=== PATIENT | male | born 1990 | race Caucasian/White ===

== ENCOUNTER 2022-09-09 10:04 | Emergency (ER) | payer OTHER, SELFPAY ==
--- NOTE | ~2022-09-09 | CT_ITS ---
EXAMINATION: CT ABDOMEN AND PELVIS WITHOUT CONTRAST CLINICAL INFORMATION: Left-sided flank pain. COMPARISON: None TECHNIQUE: Multidetector volumetric imaging was performed from the superior aspect of the liver through the pubic symphysis. Sagittal and coronal reformatted images were obtained on the technologist's workstation. This CT examination was performed using dose optimization techniques as appropriate, variously including the following: *Automated exposure control *Adjustment of mA and/or kV according to patient size (this includes techniques or standardized protocols for targeted exams where dose is matched to indication/reason for exam; i.e. extremities or head) *Use of iterative reconstruction technique DLP: 925 mGy-cm FINDINGS: LUNG BASES: The visualized lung bases are unremarkable. LIVER, GALLBLADDER, AND BILIARY TREE: The liver is normal in size, shape, and attenuation. No focal hepatic lesion or biliary ductal dilatation is present. Multiple small gallstones within the gallbladder. Gallbladder is contracted. No edema around the gallbladder. No dilatation of the bile ducts. PANCREAS: Unremarkable. SPLEEN: Unremarkable. ADRENAL GLANDS: Unremarkable. KIDNEYS AND URETERS: The kidneys are normal in size, shape, and attenuation. No hydronephrosis, hydroureter, or calculi seen. No perinephric stranding. BLADDER: Unremarkable. GASTROINTESTINAL TRACT: The small and large bowel are unremarkable. The appendix is unremarkable. ABDOMINAL WALL: No significant hernia is appreciated. LYMPH NODES: Normal. VASCULAR: Unremarkable. PELVIC VISCERA: Unremarkable. OSSEOUS STRUCTURES: Unremarkable. CT/CT abdomen pelvis wo IV con IMPRESSION: 1. No acute abnormality CT scan abdomen pelvis. Normal kidneys, ureter and bladder. 2. Cholelithiasis. Fleischner guidelines were followed.
[2022-09-09 10:40] VITALS: BP 142/94; PULSE 87; RESP 18; TEMP 36.6; O2SAT 98; BMI 43.8
[2022-09-09 10:55] LABS: Basophils Absolute Auto 0.1 X10*3/uL (0.0-0.2); Eosinophils Absolute Auto 0.1 X10*3/uL (0.0-0.4); Eosinophils Percent Auto 1.5 % (0-4); Hematocrit 44.3 % (42.0-52.0); Hemoglobin 15.4 g/dl (14.0-18.0); Imm Gran Abs Auto 0.01 X10*3/uL (0.00-0.03); Imm Gran Pct Auto 0.2 % (0.0-0.4); Lymphocytes Absolute Auto 1.8 X10*3/uL (1.2-4.9); Lymphocytes Percent Auto 31.1 % (20-40); MANUAL DIFF FLAG NO; Mean Corpuscular HGB Conc 34.8 g/dl (31.0-36.0); Mean Corpuscular Volume 86.4 fL (80.0-98.0); Mean Platelet Volume 9.5 fL (9.4-12.4); Monocytes Absolute Auto 0.7 X10*3/uL (0.1-1.2); Monocytes Percent Auto 11.7 % (2-11); Neutrophils Absolute Auto 3.2 x10*3/uL (2.0-8.3); Neutrophils Percent Auto 54.5 % (45-73); Platelet Count 300 X10*3/uL (160-400); Red Blood Count 5.13 X10*6/uL (4.60-5.80); Red Cell Distribution Width 12.4 % (11.0-16.0); White Blood Count 5.9 X10*3/uL (4.8-10.8)
[2022-09-09 11:16] LABS: Albumin Level 4.7 g/dL (3.5-5.0); Alkaline Phosphatase 56 U/L (39-117); Anion Gap 16 (12-20); Aspartate Amino Transferase 26 U/L (5-37); Bilirubin Direct 0.2 mg/dL (0.0-0.5); Blood Urea Nitrogen 11 mg/dL (9-16); Calcium 9.7 mg/dL (8.4-10.2); Carbon Dioxide 25 mmol/L (22-29); Chloride 102 mmol/L (96-108); Creatinine Clr Calc Pharmacy 129.3; Estimated Glomerular Filt Rate > 60; Glucose Random 96 mg/dL (60-115); Potassium 4.6 mmol/L (3.3-5.1); Sodium 138 mmol/L (135-145); Total Protein 7.9 g/dL (6.5-8.0)
--- NOTE | 2022-09-09 11:44 | ED_ITS ---
HPI - Abdominal Pain General Chief Complaint: Abdominal Pain <Neha Ng NP - Last Filed: 09/09/22 11:47> Stated Complaint: L lower abd pain, hurts to breathe <Neha Ng NP - Last Filed: 09/09/22 11:47> Time Seen by Provider: 09/09/22 16:37 <Neha Ng NP - Last Filed: 09/09/22 11:47> Source: patient <Dorothy Contreras CNP - Last Filed: 09/09/22 17:58> Mode of arrival: ambulatory <Dorothy Contreras CNP - Last Filed: 09/09/22 17:58> Limitations: no limitations <Dorothy Contreras CNP - Last Filed: 09/09/22 17:58> History of Present Illness HPI narrative: Patient is a 32-year-old male who presents to the emergency department today for evaluation of left lateral abdominal pain. Reports onset of pain to the been this morning. Denies ever having pain like this in the past. It is described as sharp at times and achy at others. Sometimes it seems worse with particular movements or breathing, however at other times it hurts even while at rest. Denies fevers, chills, chest pain, shortness of breath, difficulty keysha thing, cough, nausea, vomiting, diarrhea, constipation, dysuria, urinary frequency/urgency/hesitancy, testicular pain or swelling, abnormal penile discharge. <Dorothy Contreras CNP - Last Filed: 09/09/22 17:58> Related Data Allergies/Adverse Reactions: Allergies Allergy/AdvReac Type Severity Reaction Status Date / Time Penicillins Allergy Rash Verified 09/09/22 10:39 <Neha Ng NP - Last Filed: 09/09/22 11:47> Review of Systems Review of Systems Constitutional : No Weight loss, No Fever, No Chills ENT/Mouth :? No sore throat, No Rhinorrhea Eyes: No Swelling, No Redness Cardiovascular : No Chest Pain, No SOB, No Edema Respiratory : No Cough, No Sputum, No Wheezing Gastrointestinal : No Nausea, no Vomiting, no Diarrhea, positive abdominal pain, No Hematochezia, No Melena Genitourinary : No Dysuria, No Urinary Frequency, No Hematuria, No Urgency? Musculoskeletal : No joint pain, No Myalgias, No Joint Swelling Skin : No Skin Lesions, No rash Neuro : No Weakness, No Numbness, No Dizziness, No Headache Psych : No Anxiety/Panic, No Depression Heme/Lymph: No Bruising, No Lymphadenopathy Endocrine : No Polyuria, No Polydipsia <Dorothy Contreras CNP - Last Filed: 09/09/22 17:58> Yes all other systems are reviewed and are negative <Dorothy Contreras CNP - Last Filed: 09/09/22 17:58> [facility] Past Medical History Attestation statement: The following information was validated with the patient. <Dorothy Contreras CNP - Last Filed: 09/09/22 17:58> Source: old records reviewed <Dorothy Contreras CNP - Last Filed: 09/09/22 17:58> Social History Social History: Social History Advance Directives: No Advance Directives Information Provided: No <Neha Ng NP - Last Filed: 09/09/22 11:47> Physical Exam ED Vital Signs: Vital Signs - 24 hr 09/09/22 10:40 09/09/22 14:00 Temperature 98 F Pulse Rate 87 68 Respiratory Rate 18 18 Blood Pressure 142/94 H 144/89 H Pulse Oximetry 98 100 Oxygen Delivery Method Room Air Room Air BMI result Body Mass Index 43.8 <Neha Ng NP - Last Filed: 09/09/22 11:47> Vital Signs - 24 hr 09/09/22 10:40 09/09/22 14:00 Temperature 98 F Pulse Rate 87 68 Respiratory Rate 18 18 Blood Pressure 142/94 H 144/89 H Pulse Oximetry 98 100 Oxygen Delivery Method Room Air Room Air BMI result Body Mass Index 43.8 <Dorothy Contreras CNP - Last Filed: 09/09/22 17:58> Appearance: Alert.?Oriented to person, place and time. No acute distress.?Normal affect. Eyes: Pupils equal, round and reactive to light.? ENT: Pharynx normal.?? Neck: Normal inspection.? Neck supple.?? CVS: Heart sounds normal. Normal heart rate and rhythm.? Pulses normal.?? Respiratory: No respiratory distress.? Lung sounds clear to auscultation bilaterally?? Abdomen: Soft and non-tender. Positive left CVA tenderness. Normoactive bowel sounds. Skin: Skin warm and dry.? Normal skin color.? Extremities: No lower extremity edema.? Neuro: Moves all extremities spontaneously. Sensation intact bilaterally. No focal neuro deficits. Ambulates with normal steady gait. <Dorothy Contreras CNP - Last Filed: 09/09/22 17:58> Course Course Course Narrative: This is a rapid medical exam. Deferred additional HPI, ROS, PE to primary provider. 32 yo male here with left sided abdominal pain since yesterday. Labs, UA ordered from triage. Patient telling me he wants to eat food. I did recommend he not eat anything although offered some juice/clear liquids. Patient tells me has to go back to work at 130pm and is wondering how much longer it would be. I did recommend he wait to be seen as he may require imaging. VSS <Neha Ng NP - Last Filed: 09/09/22 11:47> Reevaluation(s) Reevaluation #1: CT of the abdomen and pelvis reveals no acute abnormalities, no evidence of nephrolithiasis, cholelithiasis present, history physical examination not consistent with cholecystitis. Pain is currently 3/10, suspect to be muscular in nature. Advised outpatient follow-up with primary care provider. Reviewed worrisome signs and symptoms to return back to the emergency department for. NSAID/acetaminophen for pain. Patient verbalized understanding. Was discharged in stable condition. <Dorothy Contreras CNP - Last Filed: 09/09/22 17:58> Time: 17:53 <Dorothy Contreras CNP - Last Filed: 09/09/22 17:58> Medical Decision Making Medical Decision Making MDM Narrative: Patient is a 32-year-old male with no reported past medical history presenting to emergency department for evaluation of left lateral abdominal pain. Upon physical examination has no left lower upper quadrant tenderness up on palpation abdominal examination is benign. He does have CVA tenderness last posteriorly, localizes pain to the lateral aspect of the abdomen closer to his back. Reviewed labs obtained from triage/RN me. CBC and CMP unremarkable. Urinalysis without evidence of infection or microscopic hematuria. Patient to receive ketorolac IV for pain, will obtain CT of the abdomen and pelvis to evaluate for nephrolithiasis. Not consistent with appendicitis, diverticulitis, bowel obstruction, urinary tract infection, pyelonephritis. No shortness of breath or respiratory distress, does not appear consistent with pneumonia, PERC negative low suspicion for PE on, has no hypoxia or tachypnea, do not suspect pulmonary source for pain. <Dorothy Contreras CNP - Last Filed: 09/09/22 17:58> Lab Data MDM Lab Attestation statement: I reviewed the patient's lab results. <Dorothy Contreras CNP - Last Filed: 09/09/22 17:58> Result Diagrams: : 09/09/22 10:48 09/09/22 10:48 <Neha Ng [employer] - Last Filed: 09/09/22 11:47> Labs: Lab Results 09/09/22 09/09/22 09/09/22 Range/Units 10:48 10:48 11:40 WBC 5.9 (4.8-10.8) X10*3/uL RBC 5.13 (4.60-5.80) X10*6/uL Hgb 15.4 (14.0-18.0) g/dl Hct 44.3 (42.0-52.0) % MCV 86.4 (80.0-98.0) fL MCH 30.0 (27.0-33.0) pg MCHC 34.8 (31.0-36.0) g/dl RDW 12.4 (11.0-16.0) % Plt Count 300 (160-400) X10*3/uL MPV 9.5 (9.4-12.4) fL Immature Gran % (Auto) 0.2 (0.0-0.4) % Neut % (Auto) 54.5 (45-73) % Lymph % (Auto) 31.1 (20-40) % Glenn % (Auto) 11.7 H (2-11) % Eos % (Auto) 1.5 (0-4) % Baso % (Auto) 1.0 (0-2) % Lymph # (Auto) 1.8 (1.2-4.9) X10*3/uL Glenn # (Auto) 0.7 (0.1-1.2) X10*3/uL Eos # (Auto) 0.1 (0.0-0.4) X10*3/uL Baso # (Auto) 0.1 (0.0-0.2) X10*3/uL Abs Immat Gran (auto) 0.01 (0.00-0.03) X10*3/uL Absolute Neuts (auto) 3.2 (2.0-8.3) x10*3/uL Absolute Nucleated RBC 0.000 (0.0-0.012) X10*3/uL Nucleated RBC % (auto) 0.0 (0.0-0.2) /100WBC Sodium 138 (135-145) mmol/L Potassium 4.6 (3.3-5.1) mmol/L Chloride 102 (96-108) mmol/L Carbon Dioxide 25 (22-29) mmol/L Anion Gap 16 (12-20) BUN 11 (9-16) mg/dL Creatinine 1.03 (0.5-1.4) mg/dL Estim Creat Clear Calc 129.3 Estimated GFR > 60 Random Glucose 96 (60-115) mg/dL Calcium 9.7 (8.4-10.2) mg/dL Total Bilirubin 0.5 (0.0-1.0) mg/dL Direct Bilirubin 0.2 (0.0-0.5) mg/dL AST 26 (5-37) U/L ALT 35 (0-40) U/L Alkaline Phosphatase 56 (39-117) U/L Total Protein 7.9 (6.5-8.0) g/dL Albumin 4.7 (3.5-5.0) g/dL Urine Color Yellow Urine Appearance Clear Urine pH 8.0 (5.0-9.0) Ur Specific [place] 1.020 (1.005-1.025) Urine Protein Negative (Neg-Trace) mg/dL Urine Glucose (UA) Negative (Negative) mg/dL Urine Ketones Negative (Negative) mg/dL Urine Blood Negative (Negative) Urine Nitrite Negative (Negative) Ur Leukocyte Esterase Negative (Negative) <Neha Ng NP - Last Filed: 09/09/22 11:47> Lab Results 09/09/22 09/09/22 09/09/22 Range/Units 10:48 10:48 11:40 WBC 5.9 (4.8-10.8) X10*3/uL RBC 5.13 (4.60-5.80) X10*6/uL Hgb 15.4 (14.0-18.0) g/dl Hct 44.3 (42.0-52.0) % MCV 86.4 (80.0-98.0) fL MCH 30.0 (27.0-33.0) pg MCHC 34.8 (31.0-36.0) g/dl RDW 12.4 (11.0-16.0) % Plt Count 300 (160-400) X10*3/uL MPV 9.5 (9.4-12.4) fL Immature Gran % (Auto) 0.2 (0.0-0.4) % Neut % (Auto) 54.5 (45-73) % Lymph % (Auto) 31.1 (20-40) % Glenn % (Auto) 11.7 H (2-11) % Eos % (Auto) 1.5 (0-4) % Baso % (Auto) 1.0 (0-2) % Lymph # (Auto) 1.8 (1.2-4.9) X10*3/uL Glenn # (Auto) 0.7 (0.1-1.2) X10*3/uL Eos # (Auto) 0.1 (0.0-0.4) X10*3/uL Baso # (Auto) 0.1 (0.0-0.2) X10*3/uL Abs Immat Gran (auto) 0.01 (0.00-0.03) X10*3/uL Absolute Neuts (auto) 3.2 (2.0-8.3) x10*3/uL Absolute Nucleated RBC 0.000 (0.0-0.012) X10*3/uL Nucleated RBC % (auto) 0.0 (0.0-0.2) /100WBC Sodium 138 (135-145) mmol/L Potassium 4.6 (3.3-5.1) mmol/L Chloride 102 (96-108) mmol/L Carbon Dioxide 25 (22-29) mmol/L Anion Gap 16 (12-20) BUN 11 (9-16) mg/dL Creatinine 1.03 (0.5-1.4) mg/dL Estim Creat Clear Calc 129.3 Estimated GFR > 60 Random Glucose 96 (60-115) mg/dL Calcium 9.7 (8.4-10.2) mg/dL Total Bilirubin 0.5 (0.0-1.0) mg/dL Direct Bilirubin 0.2 (0.0-0.5) mg/dL AST 26 (5-37) U/L ALT 35 (0-40) U/L Alkaline Phosphatase 56 (39-117) U/L Total Protein 7.9 (6.5-8.0) g/dL Albumin 4.7 (3.5-5.0) g/dL Urine Color Yellow Urine Appearance Clear Urine pH 8.0 (5.0-9.0) Ur Specific [place] 1.020 (1.005-1.025) Urine Protein Negative (Neg-Trace) mg/dL Urine Glucose (UA) Negative (Negative) mg/dL Urine Ketones Negative (Negative) mg/dL Urine Blood Negative (Negative) Urine Nitrite Negative (Negative) Ur Leukocyte Esterase Negative (Negative) <Dorothy Contreras CNP - Last Filed: 09/09/22 17:58> Radiology Impression Discussion of test interpretation with radiology: I have reviewed the radiologist's reading. <Dorothy Contreras CNP - Last Filed: 09/09/22 17:58> Radiologist Impression: CT/CT abdomen pelvis wo IV con IMPRESSION: 1.? No acute abnormality CT scan abdomen pelvis. Normal kidneys, ureter and bladder. 2.? Cholelithiasis. <Dorothy Contreras CNP - Last Filed: 09/09/22 17:58> Medications Administered Generic Name Dose Route Start Last Admin Trade Name Freq PRN Reason Stop Dose Admin Sodium Chloride 1,000 mls @ 999 mls/hr 09/09/22 17:00 09/09/22 17:26 Ns IV 09/09/22 18:00 Not Given .[id number] DILLON Discontinued Medications Generic Name Dose Route Start Last Admin Trade Name Freq PRN Reason Stop Dose Admin Ketorolac Tromethamine 30 mg 09/09/22 16:54 09/09/22 17:25 Ketorolac Tromethamine 30 Mg/Ml Vial IVPUSH 09/09/22 16:55 Not Given ONCE ONE <Neha Ng NP - Last Filed: 09/09/22 11:47> Medications Administered Generic Name Dose Route Start Last Admin Trade Name Freq PRN Reason Stop Dose Admin Sodium Chloride 1,000 mls @ 999 mls/hr 09/09/22 17:00 09/09/22 17:26 Ns IV 09/09/22 18:00 Not Given .Q1H1M DILLON Discontinued Medications Generic Name Dose Route Start Last Admin Trade Name Freq PRN Reason Stop Dose Admin Ketorolac Tromethamine 30 mg 09/09/22 16:54 09/09/22 17:25 Ketorolac Tromethamine 30 Mg/Ml Vial IVPUSH 09/09/22 16:55 Not Given ONCE ONE <Dorothy Contreras CNP - Last Filed: 09/09/22 17:58> Discharge Plan Discharge Clinical Impression: Abdominal pain <Neha Ng NP - Last Filed: 09/09/22 11:47> Patient Disposition: Home, Self-Care <Neha Ng NP - Last Filed: 09/09/22 11:47> Instructions: Abdominal Pain (ED) <Neha Ng NP - Last Filed: 09/09/22 11:47> Additional Instructions: You can take ibuprofen 200 mg, 3 tablets (600mg) every 6-8 hours as needed for pain, in addition to Tylenol 500 mg, 2 tablets (1,000mg) every 4-6 hours as needed for pain, but not to exceed 3 doses daily (3,000mg).? Return to emergency department with any new or worsening symptoms or concerns Follow-up with your primary care provider within 2-3 days <Neha Ng NP - Last Filed: 09/09/22 11:47> Referrals: Physician,Unknown J [Primary Care Provider] - <Neha Ng NP - Last Filed: 09/09/22 11:47> Stand Alone Forms: Work/School Release <Neha Ng NP - Last Filed: 09/09/22 11:47>
[2022-09-09 12:03] LABS: Appearance Urine Clear; Color Urine Yellow; Glucose Urine UA Negative (Negative); Leukocyte Esterase Urine Negative (Negative); Nitrite Urine Negative (Negative); Urine Blood Negative (Negative); Urine Ketones Negative (Negative); Urine Protein Negative (Neg-Trace)
[2022-09-09 14:00] VITALS: BP 144/89; PULSE 68; RESP 18; O2SAT 100
[2022-09-09 14:11] LABS: Alanine Aminotransferase 35 U/L (0-40); Bilirubin Total 0.5 mg/dL (0.0-1.0)
== END 2022-09-09 18:17 | disposition home or self-care (01) ==
PROVIDERS: Emergency Provider Emergency Medicine
DX: R10.32 Left lower quadrant pain (principal)
CPT/HCPCS: 36415; 74176; 80048; 80076; 81003; 85025; 99283; 99284